=== PATIENT | female | born 2000 | race African-American/Black ===

== ENCOUNTER 2022-01-12 16:22 | Emergency (ER) | payer SELFPAY ==
[2022-01-12] MEDS ORDERED: Morphine 4 MG/ML VIAL ONE (16:43)
[2022-01-12 17:09] LABS: Pregs Control Background? CLEAR/WHITE (CLR/WHITE); Pregs Control Bar Appear? YES (CONTROL BAR)
[2022-01-12 17:10] LABS: #Basophils 0.1 10x3/uL (0.0-0.2); #Eosinphils 0.2 10x3/uL (0.0-0.5); #Monocytes 0.6 10x3/uL (0.0-1.1); #Neutrophils 5.4 10x3/uL (1.5-8.4); %Basophils 0.8 % (0.0-2.0); %Eosinophils 1.7 % (0.0-6.0); %Lymphocytes 38.7 % (18.0-47.0); %Monocytes 5.7 % (0.0-10.0); %Neutrophils 52.8 % (40.0-75.0); Hemoglobin 12.1 g/dL (12.0-15.5); Mean Corpuscular HGB CONC 31.8 g/dL (32.0-36.0); Mean Platelet Volume 10.1 fl (7.4-10.4); Platelet Count 367 10x3/uL (150-450); RBC Distribution Width 13.7 % (11.5-14.5); Red Blood Cell (RBC) Count 4.32 10x6/uL (3.90-5.03); White Blood Cell (WBC) Count 10.2 10x3/uL (3.5-10.5)
[2022-01-12 17:11] LABS: BHCG - Serum Negative (NEGATIVE)
[2022-01-12 17:17] LABS: ALT (SGPT) 69 U/L (8-55); AST (SGOT) 31 U/L (5-34); Albumin 3.7 g/dL (3.5-5.0); Alkaline Phosphatase 48 U/L (40-110); Anion Gap 11 mmol/L (10-20); BUN (Urea Nitrogen) 7 mg/dL (7.0-18.7); Bilirubin, Total 0.4 mg/dL (0.2-1.2); Calc. Creatinine Clearance 0 mL/min (70-130); Calcium 8.5 mg/dL (7.8-10.44); Carbon Dioxide 23 mmol/L (22-29); Estimated GFR 129; Globulin 2.7 g/dL (2.4-3.5); Glucose 96 mg/dL (70-105); Lipase 12 U/L (8-78); Potassium 3.3 mmol/L (3.5-5.1); Protein, Total 6.4 g/dL (6.0-8.3); Sodium 140 mmol/L (136-145)
[2022-01-12 17:28] LABS: Chloride 109 mmol/L (98-107)
[2022-01-12] MEDS ORDERED: Ondansetron PF 4 MG/2 ML Vial ONE (17:49)
[2022-01-12] MEDS ORDERED: Potassium Chloride 20 MEQ TAB ONE (18:02)
[2022-01-12 18:11] LABS: Bilirubin Neg (Negative); Blood, Urine 10 (Negative); Clarity Cloudy (Clear); Glucose, Urine (Dipstick) Normal (Negative); Ketone, Urine 15 mg/dL (Negative); Leukocyte 25 (Negative); Nitrite Negative (Negative); Protein, Urine (Dipstick) Negative (Neg-Trace); Urobilinogen Normal mg/dL (Less than 2)
[2022-01-12 18:27] LABS: RBC/HPF 0-3 HPF (0-3)
[2022-01-12 18:29] LABS: Bacteria/HPF 3+ HPF (None Seen); Mucous/LPF Rare LPF (<2+); Squamous Epithelial 21-50 HPF (0-3)
== END 2022-01-12 18:29 | disposition home or self-care (01) ==
LOC: EDBD 16:22 → CSHERS 16:22
DX: R11.2 Nausea with vomiting, unspecified (principal)
CPT/HCPCS: 36415; 80053; 81003; 81015; 83690; 84703; 85025; 96361; 96374; 96375; J2270; J2405

== ENCOUNTER 2023-06-14 18:48 | Emergency (ER) | payer SELFPAY ==
[2023-06-14] MEDS ORDERED: Lidocaine 1% (PF) 30 ML VIAL ONE (19:30)
[2023-06-14] MEDS ORDERED: Lidocaine 1% w/Epinephrine 1:200K 30 ML VIAL ONE (19:33)
[2023-06-14 20:50] LABS: Bilirubin Neg (Negative); Blood, Urine 50 (Negative); Clarity Slightly Cloudy (Clear); Glucose, Urine (Dipstick) Normal (Negative); Ketone, Urine Negative (Negative); Leukocyte Negative (Negative); Nitrite Negative (Negative); Protein, Urine (Dipstick) 15 mg/dl (Neg-Trace); Specific Gravity, Urine 1.005 (1.005-1.030); Urobilinogen Normal mg/dL (Less than 2)
[2023-06-14 20:52] LABS: Pregnancy Test - Urine (BHCG) Negative (Negative); Pregu Control Background? CLEAR/WHITE (CLR/WHITE); Pregu Control Bar Appear? YES (CONTROL BAR); Specific Gravity 1.005 (1.002-1.036)
[2023-06-14 21:05] LABS: Bacteria/HPF None Seen HPF (None Seen); CAUTI Indications for Culture Dysuria,urgency,freq; RBC/HPF 0-3 HPF (0-3); Urine Culture Reflex No No; WBC/HPF 0-3 HPF (0-3)
[2023-06-14] MEDS ORDERED: Acetaminophen 500 MG TAB ONE (21:34)
[2023-06-14] MEDS ORDERED: Ketorolac Tromethamine 30 MG (1 mL) VIAL ONE (21:34)
[2023-06-14] MEDS ORDERED: cefTRIAXone (ROCEPHIN) 500 MG VIAL ONE (21:45)
[2023-06-14] MEDS ORDERED: Sterile Water 10 ML ONE (21:46)
[2023-06-15 19:57] LABS: Chlamydia by PCR, Vaginal Swab Not Detected (NotDetected); GC by PCR, Vaginal Swab Not Detected (NotDetected)
== END 2023-06-14 21:54 | disposition home or self-care (01) ==
LOC: CSHERS 18:48
DX: L02.31 Cutaneous abscess of buttock (principal); N76.0 Acute vaginitis
CPT/HCPCS: 81001; 81025; 87480; 87491; 87510; 87591; 87660; 96372; 96374; J0696; J1885; J2001

== ENCOUNTER 2023-06-17 09:16 | Emergency (ER) | payer SELFPAY ==
[2023-06-17] MEDS ORDERED: Ketorolac Tromethamine 30 MG (1 mL) VIAL ONE (09:54)
[2023-06-17] MEDS ORDERED: Acetaminophen 325 MG TAB ONE (09:54)
[2023-06-17] MEDS ORDERED: Doxycycline 100 MG CAP PO SCH (10:15)
== END 2023-06-17 10:30 | disposition home or self-care (01) ==
LOC: CSHERS 09:16
DX: L03.317 Cellulitis of buttock (principal)
CPT/HCPCS: 96372; 99283; J1885